=== PATIENT | female | born 1985 | race Caucasian/White ===

== ENCOUNTER 2018-05-16 20:46 | Emergency (ER) | payer SELFPAY ==
[2017-04-13 05:24] VITALS: Wt 93.0 kg
[~2018-05-16 20:46] MED LIST: ACET500T68 PO; ACYC-50 PO; APIX5TAB PO; BENZ100C4 PO; BUTA1CAP4 PO; CEP500 PO; CIP500 PO; DM H PO; DOC100 PO; DOCU-416 PO; FAMO20TA28 PO; FERR325T3 PO; FLUT16SP20 NS; HYDR473S4 PO; IBU600 PO; IBUP-56 PO; IBUP800T37 PO; IRON150C19 PO; LANS1COM7 PO; LEVO1.5T8 PO; LOR5/325 PO; NOR5/325 PO; ONDA-2 PO; ONDA4TAB PO; ONDA4TAB97 PO; OSE75 PO; OXYC-865 PO; PAN40 PO; PENI-24 PO; PER PO; PHEN120S16 PO; PNV1TABL92 PO; PRED20TA6 PO; PREN-127 PO; PREN-67 PO; PROM-110 PO; PROM5SYR PO; RIVA15TA PO; SUCR1ORA13 PO; [UNRECOGNIZED DRUG - CODE] PO
--- NOTE | 2018-05-16 22:15 | ER Report ---
History and Physical Time Seen By MD: 22:15 Hx. of Stated Complaint: LOW ABDO PAIN RADIATING INTO BACK, STARTED RLQ. NAUSEA, DIARRHEA HPI/ROS CHIEF COMPLAINT: Abdominal pain HISTORY OF PRESENT ILLNESS: This is a 32-year-old female. She has had ongoing abdominal pain for several weeks now. Seems to be worsening over the last few days. Mainly in the right lower quadrant but also across the whole lower abdomen and does go into her back. She says she had a little bit of red blood a few days ago with her stools. She is having nausea, but no vomiting. Normal urination. Nothing really makes the pain better. It seems to worsen with movement. She denies any fevers or chills with this. No chest pain or shortness of breath. REVIEW OF SYSTEMS: As above. Allergies: Coded Allergies: No Known Allergies (Verified Allergy, Mild, 04/17/17) Home Meds Active Scripts Ondansetron (ZOFRAN ODT) 4 Mg Tab.rapdis, 4 MG PO Q6H PRN for NAUSEA/VOMITING, #20 TAB.JAREN 0 Refills Prov:SKYE MICHAEL MD 05/17/18 Hydrocodone Bit/Acetaminophen (HYDROCODON-ACETAMINOPHEN 5-325) 1 Each Tablet, 1 EACH PO Q4H PRN for PAIN, #12 TAB 0 Refills Prov:SKYE MICHAEL MD 05/17/18 Ibuprofen (IBUPROFEN) 800 Mg Tablet, 800 MG PO Q8H@0600,1400,2200, #30 TAB 0 Refills Prov:CLAUDIALAM 04/15/17 Discontinued Reported Medications Famotidine (PEPCID) 20 Mg Tablet, 20 MG PO PRN, #10 TAB 03/30/17 Discontinued Scripts Oxycodone Hcl/Acetaminophen (PERCOCET 5-325 MG TABLET) 1 Each Tablet, 1 EACH PO Q4-6H PRN for PAIN, #20 TAB Prov:CHEY KHAN 04/18/17 Apixaban (ELIQUIS) 5 Mg Tablet, 5 MG PO DIRECTED, #74 TAB 0 Refills Take 2 tablets twice a day for 7 days, then decrease to one tablet twice a day Prov:SKYE MICHAEL MD 04/17/17 Hydrocodone Bit/Acetaminophen (HYDROCODON-ACETAMINOPHEN 5-325) 1 Each Tablet, 1 EACH PO Q4H PRN for PAIN, #12 TAB 0 Refills Prov:SKYE MICHAEL MD 04/17/17 Prednisone (PREDNISONE) 20 Mg Tablet, 40 MG PO QDAY, #6 TAB 0 Refills Prov:SKYE MICHAEL MD 04/17/17 Acyclovir (ACYCLOVIR) 400 Mg Tablet, 400 MG PO TID for 5 Days, #15 TAB 0 Refills Prov:SKYE MICHAEL MD 04/17/17 Oxycodone/Acetaminophen (OXYCODONE/ACETAMINOPHEN 5MG/325 MG) 5 Mg/325 Mg Tab, 1- 2 TAB PO Q4H PRN for PAIN, #40 TAB 0 Refills Prov:LAM TAYLOR 04/15/17 Reviewed Nurses Notes: Yes Hx Smoking: Yes Smoking Status: Current: Every Day Smoker Exposure to Second Hand Smoke?: Yes Hx Substance Use Disorder: No Hx Alcohol Use: No Constitutional Vital Sign - Last 24 Hours 05/16/18 21:56 Temp 97.9 Pulse 100 Resp 16 B/P (MAP) 139/98 Pulse Ox 93 O2 Delivery Room Air Physical Exam General Appearance: The patient is alert. Mild distress because of pain. Non- toxic in appearance. Eyes: Pupils are equal, round. No pallor, injection or icterus. ENT: Mucous membranes are moist. Normal oral mucosa. Posterior oropharynx is normal. Neck: Supple and non tender. Respiratory: Lungs are clear to auscultation. Cardiovascular: Regular rate and rhythm. No murmurs, gallops or rubs. Gastrointestinal: Abdomen is soft, tender throughout the lower abdomen, somewhat in the right lower back as well. Nondistended. She does have guarding but no rebound. No masses or organomegaly. Normal active bowel sounds. She does have some right-sided CVA tenderness. Neurological: Alert and oriented x3. Skin: Warm and dry. No rashes. Musculoskeletal: Extremities are nontender. No tenderness in palpation of the cervical, thoracic and lumbar spine. DIFFERENTIAL DIAGNOSIS: After history and physical exam, differential diagnosis was considered for abdominal pain including but not limited to appendicitis, cholecystitis, gastritis and urinary tract infection. Medical Decision Making Data Points Result Diagram: 05/16/18224905/16/18 225 Laboratory Hematology Test 05/16/18 21:07 05/16/18 22:50 Urine Color Yellow Urine Clarity Cloudy Urine pH 5.0 pH (4.8-9.5) Urine Specific [place] 1.026 Urine Protein Negative mg/dL (NEGATIVE) Urine Glucose (UA) Negative mg/dL (NEGATIVE) Urine Ketones Negative mg/dL (NEGATIVE) Urine Blood Negative (NEGATIVE) Urine Nitrite Negative (NEGATIVE) Urine Bilirubin Negative (NEGATIVE) Urine Urobilinogen Negative mg/dL (0.2-1.9) Urine Leukocyte Esterase Negative (NEGATIVE) Urine RBC None /HPF (0-2/HPF) Urine WBC 2 /HPF (0-5/HPF) Urine Squamous Epithelial Cells Many /LPF (</=FEW) Urine Bacteria Negative /HPF (NONE-FEW) Urine Mucus Few /HPF (NONE-FEW) Red Blood Count 4.38 M/uL (4.17-5.56) Mean Corpuscular Volume 86.9 fL (80.0-96.0) Mean Corpuscular Hemoglobin 29.0 pg (26.0-33.0) Mean Corpuscular Hemoglobin Concent 33.4 g/dL (32.0-36.0) Red Cell Distribution Width 14.4 % (11.5-14.5) Mean Platelet Volume 8.6 fL (7.2-11.1) Neutrophils (%) (Auto) 68.8 % (39.4-72.5) Lymphocytes (%) (Auto) 25.4 % (17.6-49.6) Monocytes (%) (Auto) 4.2 % (4.1-12.4) Eosinophils (%) (Auto) 1.0 % (0.4-6.7) Basophils (%) (Auto) 0.6 % (0.3-1.4) Nucleated RBC Relative Count (auto) 0.0 /100WBC Neutrophils # (Auto) 6.6 K/uL (2.0-7.4) Lymphocytes # (Auto) 2.4 K/uL (1.3-3.6) Monocytes # (Auto) 0.4 K/uL (0.3-1.0) Eosinophils # (Auto) 0.1 K/uL (0.0-0.5) Basophils # (Auto) 0.1 K/uL (0.0-0.1) Nucleated RBC Absolute Count (auto) 0.00 K/uL Sodium Level 138 mmol/L (137-145) Potassium Level 3.8 mmol/L (3.5-5.0) Chloride Level 104 mmol/L (98-107) Carbon Dioxide Level 23 mmol/L (22-31) Blood Urea Nitrogen 13 mg/dl (7-18) Creatinine 0.70 mg/dl (0.52-1.04) Glomerular Filtration Rate Calc > 60.0 Random Glucose 94 mg/dl (75-110) Lactate 1.3 mmol/L (0.7-2.1) Calcium Level 9.0 mg/dl (8.4-10.2) Total Bilirubin 0.3 mg/dl (0.2-1.3) Aspartate Amino Transf (AST/SGOT) 15 U/L (0-35) Alanine Aminotransferase (ALT/SGPT) 25 U/L (0-56) Alkaline Phosphatase 72 U/L (0-126) C-Reactive Protein 2.2 mg/dl (<1.0) Total Protein 7.0 g/dl (6.3-8.2) Albumin 3.9 g/dl (3.5-5.0) Amylase Level 55 U/L (0-110) Lipase 57 U/L (23-300) Human Chorionic Gonadotropin, Qual Negative (NEGATIVE) Chemistry Test 05/16/18 21:07 05/16/18 22:50 Urine Color Yellow Urine Clarity Cloudy Urine pH 5.0 pH (4.8-9.5) Urine Specific [place] 1.026 Urine Protein Negative mg/dL (NEGATIVE) Urine Glucose (UA) Negative mg/dL (NEGATIVE) Urine Ketones Negative mg/dL (NEGATIVE) Urine Blood Negative (NEGATIVE) Urine Nitrite Negative (NEGATIVE) Urine Bilirubin Negative (NEGATIVE) Urine Urobilinogen Negative mg/dL (0.2-1.9) Urine Leukocyte Esterase Negative (NEGATIVE) Urine RBC None /HPF (0-2/HPF) Urine WBC 2 /HPF (0-5/HPF) Urine Squamous Epithelial Cells Many /LPF (</=FEW) Urine Bacteria Negative /HPF (NONE-FEW) Urine Mucus Few /HPF (NONE-FEW) White Blood Count 9.6 k/uL (4.5-11.0) Red Blood Count 4.38 M/uL (4.17-5.56) Hemoglobin 12.7 g/dL (12.0-16.0) Hematocrit 38.1 % (34.0-47.0) Mean Corpuscular Volume 86.9 fL (80.0-96.0) Mean Corpuscular Hemoglobin 29.0 pg (26.0-33.0) Mean Corpuscular Hemoglobin Concent 33.4 g/dL (32.0-36.0) Red Cell Distribution Width 14.4 % (11.5-14.5) Platelet Count 303 K/uL (150-450) Mean Platelet Volume 8.6 fL (7.2-11.1) Neutrophils (%) (Auto) 68.8 % (39.4-72.5) Lymphocytes (%) (Auto) 25.4 % (17.6-49.6) Monocytes (%) (Auto) 4.2 % (4.1-12.4) Eosinophils (%) (Auto) 1.0 % (0.4-6.7) Basophils (%) (Auto) 0.6 % (0.3-1.4) Nucleated RBC Relative Count (auto) 0.0 /100WBC Neutrophils # (Auto) 6.6 K/uL (2.0-7.4) Lymphocytes # (Auto) 2.4 K/uL (1.3-3.6) Monocytes # (Auto) 0.4 K/uL (0.3-1.0) Eosinophils # (Auto) 0.1 K/uL (0.0-0.5) Basophils # (Auto) 0.1 K/uL (0.0-0.1) Nucleated RBC Absolute Count (auto) 0.00 K/uL Glomerular Filtration Rate Calc > 60.0 Lactate 1.3 mmol/L (0.7-2.1) Calcium Level 9.0 mg/dl (8.4-10.2) Total Bilirubin 0.3 mg/dl (0.2-1.3) Aspartate Amino Transf (AST/SGOT) 15 U/L (0-35) Alanine Aminotransferase (ALT/SGPT) 25 U/L (0-56) Alkaline Phosphatase 72 U/L (0-126) C-Reactive Protein 2.2 mg/dl (<1.0) Total Protein 7.0 g/dl (6.3-8.2) Albumin 3.9 g/dl (3.5-5.0) Amylase Level 55 U/L (0-110) Lipase 57 U/L (23-300) Human Chorionic Gonadotropin, Qual Negative (NEGATIVE) Urinalysis Test 05/16/18 21:07 Urine Color Yellow Urine Clarity Cloudy Urine pH 5.0 pH (4.8-9.5) Urine Specific [place] 1.026 Urine Protein Negative mg/dL (NEGATIVE) Urine Glucose (UA) Negative mg/dL (NEGATIVE) Urine Ketones Negative mg/dL (NEGATIVE) Urine Blood Negative (NEGATIVE) Urine Nitrite Negative (NEGATIVE) Urine Bilirubin Negative (NEGATIVE) Urine Urobilinogen Negative mg/dL (0.2-1.9) Urine Leukocyte Esterase Negative (NEGATIVE) Urine RBC None /HPF (0-2/HPF) Urine WBC 2 /HPF (0-5/HPF) Urine Squamous Epithelial Cells Many /LPF (</=FEW) Urine Bacteria Negative /HPF (NONE-FEW) Urine Mucus Few /HPF (NONE-FEW) EKG/Imaging Imaging Computed tomograpy abdomen and pelvis with IV contrast Indication: Dominant pain. Bloody stool. Comparison: Every 2013. Technique: Transaxial computed tomography images were obtained through the abdomen and pelvis following the injection of nonionic iodinated intravenous contrast. Reformatted coronal and sagittal images were also obtained. One of the following dose optimization techniques was utilized in the performance of this exam: Automated exposure control; adjustment of the mA and/or kV according to the patient's size; or use of an iterative reconstruction technique. Specific details can be referenced in the facility's radiology CT exam operational policy. Contrast: 75 ml of Isovue-370 IV contrast. Findings: Lower lung mcduffie: Limited views lower lung field are unremarkable. Liver: No focal parenchymal abnormality of the liver. Biliary: Gallbladder is partially contracted. No evidence of biliary dilatation. Pancreas: Normal appearance. Spleen: Normal appearance. Adrenal glands: Unremarkable. Kidneys / retroperitoneum: No evidence of nephrolithiasis or hydronephrosis Bowel / peritoneum / mesenteries: The visualized small and large bowel appear unremarkable. Appendix is normal. Lymph node assessment: No pathologic adenopathy identified. Pelvic structures: Question small fundal fibroid causing focal convexity of the fundal contours. Vessels: No significant atherosclerotic calcifications seen throughout a nonaneurysmal abdominal aorta and branches. Musculoskeletal / Body wall: No acute osseous and amounted is seen. There is a small fat-containing umbilical hernia. IMPRESSION: 1. No acute inflammatory process identified within the abdomen or the pelvis. 2. Small fat-containing umbilical hernia. Report Dictated By: Carson Martínez at 05/16/2018 11:32 PM ED Course/Re-evaluation Clinical Indication for ER IV: Hydration, IV Access ED Course Patient was given morphine and Zofran IV after initial evaluation. Labs obtained which were negative. CT scan of the abdomen and pelvis also unremarkable. Reviewed this with the patient. Recommended follow-up with general surgery or gastroenterology for further evaluation. Decision to Disposition Date: May 17, 2018 Decision to Disposition Time: 00:10 Depart Departure Latest Vital Signs Vital Signs Date Time Temp Pulse Resp B/P (MAP) Pulse Ox O2 Delivery O2 Flow Rate FiO2 05/16/18 21:56 97.9 100 16 139/98 93 Room Air Impression: Primary Impression: Abdominal pain Condition: Improved Disposition: HOME OR SELF-CARE New Scripts Ondansetron (ZOFRAN ODT) 4 Mg Tab.rapdis 4 MG PO Q6H PRN for NAUSEA/VOMITING, #20 TAB.JAREN 0 Refills Prov: SKYE MICHAEL MD 05/17/18 Hydrocodone Bit/Acetaminophen (HYDROCODON-ACETAMINOPHEN 5-325) 1 Each Tablet 1 EACH PO Q4H PRN for PAIN, #12 TAB 0 Refills Prov: SKYE MICHAEL MD 05/17/18 Patient Instructions: Abdominal Pain (ED) Additional Instructions: We were unable to find the cause of your abdominal pain tonight. CT scan and labs were unremarkable. The next step in working up you abdominal pain will be to see someone who can pe rform endoscopy (such as colonoscopy). A general surgeon like Dr. Acosta can do this, or a GI specialist can do this. Take Ibuprofen 200mg over the counter tablets, 4 tablets every 8 hours as needed for pain. Take Lortab 5/325, one every 4 hours as needed for severe pain. Take Zofran 4mg, one every 6 hours as needed for nausea. Problem Qualifiers Primary Impression: Abdominal pain Abdominal location: lower abdomen, unspecified Qualified Codes: R10.30 - Lower abdominal pain, unspecified SKYE MICHAEL MD May 16, 2018 22:15
[2018-05-16] MEDS ORDERED: NS(*) 0.9% 1000 ML BAG 1,000 ML IV ONE (22:24)
[2018-05-16] MEDS ORDERED: ONDANSETRON 4 MG/2 ML VIAL IVP ONE (22:25)
[2018-05-16] MEDS ORDERED: MORPHINE 4 MG/ML SDV IVP ONE (22:25)
[2018-05-16] MEDS ORDERED: IOPAMIDOL 76% 75 ML INFUS BTL 75 ML ONE (23:05)
[2018-05-16 23:11] LABS: PLATELET COUNT, AUTOMATED 303 K/uL (150-450)
--- NOTE | 2018-05-16 23:46 | RADIOLOGY IMAGING REPORT ---
FACILITY: [facility] - [place] PATIENT NAME: Maria M Shafer : 1985 MR: [id number] V: [id number] EXAM DATE: ORDERING PHYSICIAN: SKYE MICHAEL TECHNOLOGIST: Location: [facility] [place] Patient: Maria M Shafer : 1985 Visit/Account:[id number] Date of Sevice: 05/16/2018 Computed tomograpy abdomen and pelvis with IV contrast Indication: Dominant pain. Bloody stool. Comparison: Every 2013. Technique: Transaxial computed tomography images were obtained through the abdomen and pelvis follo wing the injection of nonionic iodinated intravenous contrast. Reformatted coronal and sagittal image s were also obtained. One of the following dose optimization techniques was utilized in the performance of this exam: Autom ated exposure control; adjustment of the mA and/or kV according to the patient's size; or use of an i terative reconstruction technique. Specific details can be referenced in the facility's radiology C T exam operational policy. Contrast: 75 ml of Isovue-370 IV contrast. Findings: Lower lung mcduffie: Limited views lower lung field are unremarkable. Liver: No focal parenchymal abnormality of the liver. Biliary: Gallbladder is partially contracted. No evidence of biliary dilatation. Pancreas: Normal appearance. Spleen: Normal appearance. Adrenal glands: Unremarkable. Kidneys / retroperitoneum: No evidence of nephrolithiasis or hydronephrosis Bowel / peritoneum / mesenteries: The visualized small and large bowel appear unremarkable. Appendix is normal. Lymph node assessment: No pathologic adenopathy identified. Pelvic structures: Question small fundal fibroid causing focal convexity of the fundal contours. Vessels: No significant atherosclerotic calcifications seen throughout a nonaneurysmal abdominal aort a and branches. Musculoskeletal / Body wall: No acute osseous and amounted is seen. There is a small fat-containing u mbilical hernia. IMPRESSION: 1. No acute inflammatory process identified within the abdomen or the pelvis. 2. Small fat-containing umbilical hernia. Report Dictated By: Carson Martínez at 05/16/2018 11:32 PM Report E-Signed By: Carson Martínez at 05/16/2018 11:42 PM WSN:[id number]
[2018-05-17] VITALS: BP 119/79
[2018-05-17] MEDS ORDERED: ONDA4TAB PO (00:13)
[2018-05-17] MEDS ORDERED: LOR5/325 PO (00:13)
[2018-05-17] MEDS ORDERED: ONDANSETRON 4 MG ODT TH SL ONE (00:15)
[2018-05-17] MEDS ORDERED: ACET/HYDROC 5/325MG TH ER ONLY 2 TAB/BOTTLE PO ONE (00:15)
== END 2018-05-17 00:25 | disposition home or self-care (01) ==
LOC: ER 21:59
DX: R10.30 Lower abdominal pain, unspecified (principal)
CPT/HCPCS: 74177; 81001; 82150; 83605; 83690; 84703; 85025; 86140; 96361; 96374; 96375; 99284; J2270; J2405; J7030; Q9967; S0119; 82040; 82247; 82310; 82374; 82435; 82565; 82947; 84075; 84132; 84155; 84295; 84450; 84460; 84520

== ENCOUNTER → 2018-12-18 | Outpatient (REF) ==
[2017-04-13 05:24] VITALS: BMI 38.7
[~2018-12-18] MED LIST changes: +CHOL10005 PO; +DICY10CA11 PO; +MULT1TAB64 PO
--- NOTE | 2018-12-18 16:40 | RADIOLOGY IMAGING REPORT ---
FACILITY: [facility] PATIENT NAME: Maria M Shafer : 1985 MR: [id number] V: [id number] EXAM DATE: ORDERING PHYSICIAN: GLENROY LYNNE TECHNOLOGIST: Location: [facility] Patient: Maria M Shafer : 1985 Visit/Account:[id number] Date of Sevice: 12/18/2018 TRANSVAGINAL NON-OB INDICATION: Right lower quadrant pain, history of , COMPARISON: CT 06-01 FINDINGS: Uterus measures 7.1 x 3.5 x 5.7 cm and is mildly heterogeneous in echotexture. Anteriorly along the body, scar is noted. Double wall endometrial stripe measures 8.6 mm and is homogeneous There is no free fluid in the cul-de-sac. Urinary bladder is empty. Pelvic vessels appear unremarkable on this examination. Right ovary measures 3.3 x 1.6 x 2.5 cm and shows normal blood flow and contains several small follic les. Left ovary measures 2.1 x 1.4 x 2.2 cm and shows normal blood flow and contains several small follicl es. IMPRESSION: 1. Pelvic ultrasound is within normal limits. Report Dictated By: Dillon Joya at 12/18/2018 4:33 PM Report E-Signed By: Dillon Joya at 12/18/2018 4:35 PM WSN:[id number]
== END ==
LOC: US 15:23
PROVIDERS: ATTEND Family Medicine
DX: R10.2 Pelvic and perineal pain (principal)
CPT/HCPCS: 76830